=== PATIENT | female | born 1970 | race African-American/Black ===

== ENCOUNTER → 2016-12-16 | Outpatient (CLI) | payer OTHER ==
[2016-07-22 22:40] VITALS: BP 128/75
[~2016-12-16] MED LIST: BENZ100C PO; LEVO750T31 PO; ONDA4TAB7 PO; PRED50TA PO; PROAIR HFA8.5 GM INH
--- NOTE | 2016-12-16 11:02 | CARD ---
APPROVED REPORT EXAM: Two-dimensional and M-mode echocardiogram with Doppler and color Doppler. Other Information Quality : Average Rhythm : NSR INDICATION Palpitations Murmur 2D DIMENSIONS RVDd2.6 (2.9-3.5cm)Left Atrium(2D)3.8 (1.6-4.0cm) IVSd1.2 (0.7-1.1cm)Aortic Root(2D)2.8 (2.0-3.7cm) LVDd4.5 (3.9-5.9cm)LVOT Diameter1.9 (1.8-2.4cm) PWd1.2 (0.7-1.1cm)LVDs2.8 (2.5-4.0cm) FS (%) 36.9 %SV60.7 ml LVEF(%)66.9 (>50%) Aortic Valve AoV Peak Brendon.112.9cm/sAoV VTI21.3cm AO Peak GR.5.1mmHgLVOT Peak Brendon.110.7cm/s LVOT VTI 18.90cmAO Mean GR.3mmHg SHAINA (VMAX)2.97bw5EUQ (VTI)2.64cm2 Mitral Valve MV E Seqfmibx08.3cm/sMV DECEL [id number] MV A Gycqwlpr09.4cm/sMV E Mean Gr.2mmHg MV PWP23lzB/A Ratio1.2 MV A Deizmtgc32qwASH (PHT)3.85cm2 TDI E/Lateral E'6.5E/Medial E'6.4 Pulmonary Valve PV Peak Fgmhwpiu01.8cm/sPV Peak Grad.2mmHg RVOT VTI13.5cm Tricuspid Valve TR P. Mgqhfdfh283bi/sRAP GMXXIWPE8xhRl TR Peak Gr.02bbSvFOSI55weXm LEFT VENTRICLE The left ventricle is normal size. There is borderline concentric left ventricular hypertrophy. Left ventricle systolic function is normal. The Ejection Fraction is 60-65%. There is normal LV segmental wall motion. The left ventricular diastolic function and filling is normal for age. RIGHT VENTRICLE The right ventricle is normal size. The right ventricular systolic function is normal. ATRIA The left atrium size is normal. The right atrium size is normal. The interatrial septum is intact wit h no evidence for an atrial septal defect or patent foramen ovale as noted on 2-D or Doppler imaging. AORTIC VALVE The aortic valve is normal in structure and function. The aortic valve is trileaflet. Doppler and Col or Flow revealed no significant aortic regurgitation. There is no significant aortic valvular stenosi s. MITRAL VALVE The mitral valve leaflets are thickened. There is no mitral valve stenosis. Doppler and Color Flow re vealed trace mitral regurgitation. TRICUSPID VALVE The tricuspid valve is normal in structure and function. Doppler and Color Flow revealed trace tricus pid regurgitation. The PA pressure was estimated at 18 mmHg. There is no tricuspid valve stenosis. PULMONIC VALVE The pulmonic valve is not well visualized. Doppler and Color Flow revealed no pulmonic valvular regur gitation. There is no pulmonic valvular stenosis. GREAT VESSELS The aortic root is normal in size. The IVC is normal in size and collapses >50% with inspiration. PERICARDIAL EFFUSION There is no evidence of significant pericardial effusion. Critical Notification Critical Value: No <Conclusion> Left ventricle systolic function is normal. The Ejection Fraction is 60-65%. There is normal LV segmental wall motion. Trace mitral regurgitation. Trace tricuspid regurgitation. The PA pressure was estimated at 18 mmHg. There is no evidence of significant pericardial effusion.
== END | disposition home or self-care (01) ==
LOC: ECHO 08:42
PROVIDERS: ATTEND Internal Medicine Cardiovascular Disease
DX: I07.1 Rheumatic tricuspid insufficiency (principal); I34.0 Nonrheumatic mitral (valve) insufficiency; R01.1 Cardiac murmur, unspecified
CPT/HCPCS: 93306

== ENCOUNTER → 2019-04-18 | Outpatient (CLI) | payer OTHER ==
[2018-07-09 12:08] VITALS: BP 144/65
[~2019-04-18] MED LIST changes: +ALBU2.5V8 INH; +LEVO137T3 PO; -PROAIR HFA8.5 GM INH
--- NOTE | 2019-04-18 14:07 | RAD ---
MRI Lumbar Spine without contrast History: Low back pain into both legs Technique: Multiplanar, multi sequential noncontrast MR imaging was performed of the lumbar spine. Comparison: None Findings: There is motion degradation. Lumbar vertebral body stature and AP alignment are maintained. Conus terminates near L1. Intervertebral disc spaces are relatively preserved. Minimal edema of the anterior L4 endplate anteriorly and on the right likely reactive/degenerative in etiology. There is focus of degenerative endplate change or hemangioma of the inferior L2 vertebral body. L3-L4: Spinal canal and neural foramina are adequate. There is mild to moderate buckling of the ligamentum flavum. L4-L5: There is mild buckling of the ligamentum flavum. Spinal canal and neural foramina are adequate. L5-S1: Spinal canal and the neural foramina are adequate. Impression: 1. There is no significant lumbar spinal stenosis or neural foramina compromise. Electronically signed by: Austin Hickey MD (04/18/2019 2:04 PM) [email or web address]
== END | disposition home or self-care (01) ==
LOC: MRI 13:06
PROVIDERS: ATTEND Family Medicine
DX: G95.19 Other vascular myelopathies (principal)
CPT/HCPCS: 72148